=== PATIENT | female | born 1955 | race Caucasian/White ===

== ENCOUNTER 2025-04-07 12:33 | Emergency (ER) | payer MEDICARE, SELFPAY ==
[2025-04-07 12:49] VITALS: BP 143/83; PULSE 63; RESP 16; TEMP 36.9; O2SAT 98; BMI 24.4
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
== END 2025-04-07 16:09 | disposition home or self-care (01) ==
LOC: SERX 16:17
DX: S09.90XA Unspecified injury of head, initial encounter (principal); V89.2XXA Person injured in unspecified motor-vehicle accident, traffic, initial encounter; Y92.410 Unspecified street and highway as the place of occurrence of the external cause
CPT/HCPCS: 70450; 71250; 72125; 74176; 99282